=== PATIENT | male | born 1985 | race Two or more races ===

== ENCOUNTER 2022-11-05 23:36 | Emergency (ER) | payer MEDICAID, OTHER ==
[~2022-11-05] VITALS: Ht 177.8 cm; Wt 100.0 kg
[2022-11-06 00:26] VITALS: BP 150/87
== END 2022-11-06 01:15 | disposition home or self-care (01) ==
LOC: ER 23:36
DX: I83.892 Varicose veins of left lower extremity with other complications (principal)